=== PATIENT | male | born 1975 | race Caucasian/White ===

== ENCOUNTER 2017-04-14 10:00 | Day surgery (SDC) | payer MEDICAID ==
[2017-04-14] MEDS ORDERED: NORMAL SALINE 1,000 ML IV ONE ×2 (10:13→13:35)
[2017-04-14] MEDS ORDERED: KETOROLAC TROMETHAMINE 30 MG/ML VIAL IV ONE (10:13)
[2017-04-14] MEDS ORDERED: ONDANSETRON HCL/PF 2 MG/ML VIAL IV ONE (10:13)
[2017-04-14] MEDS ORDERED: ONDANSETRON HCL/PF 2 MG/ML VIAL ONE (10:18)
[2017-04-14] MEDS ORDERED: KETOROLAC TROMETHAMINE 30 MG/ML VIAL ONE (10:19)
--- NOTE | 2017-04-14 10:30 | ERNOTE ---
ER Male HPI Date of Service: 04/14/17 Stated Complaint: KIDNEY STONE ER Male: dysuria Time Seen by Provider: 04/14/17 10:11 Source: patient Exam Limitations: no limitations Immunizations: IMMUNIZATION HX Immunizations Up to Date No History of Influenza Vaccine No Hx Pneumococcal Vaccination No Allergies/Adverse Reactions: Allergies Penicillins Allergy (Severe, Verified 04/14/17 10:08) Other Home Medications: HOME MEDICATIONS Albuterol Sulfate [Proair Hfa] 1 - 2 puff IH Q6H PRN 04/14/17 [Last Taken Unknown] DULoxetine HCL [Cymbalta] 30 mg PO BID 04/14/17 [Last Taken Unknown] Loratadine [Allergy Relief] 10 mg PO DAILY 04/14/17 [Last Taken Unknown] Montelukast Sodium [Singulair] 10 mg PO DAILY 04/14/17 [Last Taken Unknown] Ranitidine HCl [Zantac] 150 mg PO DAILY 04/14/17 [Last Taken Unknown] Ranitidine HCl [Zantac] 300 mg PO HS 04/14/17 [Last Taken Unknown] Sildenafil Citrate [Revatio] 20 mg PO DAILY 04/14/17 [Last Taken Unknown] - History of Present Illness Narrative: Pt. comes in with c/o R flank pain and nausea and vomiting for four hours. Pt. denies any SOB, CP, diarrhea, fever, or prehospital treatment but states that he has a hx of kidney stones that passed on their own but states that this is the exact same symptoms as when he had the previous ones. Review of Systems - Review of Systems Constitutional: Present: diaphoresis. Absent: fever, chills, fatigue, malaise EYE: Present: no symptoms reported ENT: Present: no symptoms reported Respiratory: Present: no symptoms reported. Absent: shortness of breath, cough , wheezing Cardiology: Present: no symptoms reported. Absent: chest pain, palpitations, edema Gastrointestinal/Abdominal: Present: nausea, vomiting, abdominal pain - R suprapubic. Absent: diarrhea Genitourinary: Present: no symptoms reported Musculoskeletal: Present: back pain - R flank Skin: Present: no symptoms reported. Absent: rash, change in color Neurological: Present: no symptoms reported. Absent: headache, dizziness/light- headedness, weakness, numbness, tingling All Other Systems: All systems neg except as marked - Patient's Past Medical History Patient History - Medical: Other - ureteral stones - Social History Smoking Status: Never smoker Have you smoked in the past 12 months: No Do you dip or chew tobacco: No - Immunizations Immunizations Up to Date: No Hx Pneumococcal Vaccination: No History of Influenza Vaccine: No Physical Exam - Physical Exam General Appearance: Present: wd/wn, alert, moderate distress Head Exam: Present: normal inspection, no evidence of injury Eye Exam: Normal inspection: bilateral, PERRL: bilateral, EOMI: bilateral Ears, Nose, Throat: Present: normal ENT inspection, normal pharynx Neck: Present: normal inspection, nontender. Absent: lymphadenopathy (R), lymphadenopathy (L) Respiratory: Present: no respiratory distress, normal breath sounds, no accessory muscle use, chest nontender, lungs clear Cardiovascular/Chest: Present: regular rate, rhythm, no murmur, normal peripheral pulses Gastrointestinal/Abdominal: Present: normal bowel sounds, tenderness - R suprapubic and groin. Absent: McBurney sign, Obturator sign, Concepcion sign, Psoas sign, mass Back Exam: Present: normal inspection, normal range of motion, no vertebral tenderness, CVA tenderness (R) Extremity Exam: Present: normal inspection, non-tender, normal range of motion, no edema Neurological Exam: Present: alert, oriented, normal mood/affect, no motor/ sensory deficits Skin Exam: Present: diaphoresis, pallor ED Progress - Date and Time Seen: Date and Time: 04/14/17 13:[address] ludwig and he states that as pt. has bilat hydronephrosis that pt. needs this taken care of sooner than later and he will have Dr Hill come take a look at him 04/14/17 13:17 Dr Hill saw pt. and agrred to procedure. - Results and Orders Patient's Lab Results:: I have reviewed the patient's lab results. - Vital Signs Patient's Vital Signs:: I have reviewed the patient's vital signs. Vital Signs: Vital Signs 04/14/17 10:05 Temperature 36.0 C L Pulse Rate 73 Respiratory 20 Rate Blood Pressure 165/108 O2 Sat by Pulse 95 Oximetry - CT/Ultrasound CT/Ultrasound Narrative: CT with B distal ureter stones 5.8 mm and 5.6 mm with B hydronephrosis. - Progress/Reassessment Chief Complaint: Genitourinary Problem Progress:: Improved Progress Note-Subjective: 04/14/17 13:10 Pt. still appears ill and states tath he is nauseated and is still diaphoretic Departure Clinical Impression: Ureteral stone with hydronephrosis - Departure [facility] Condition: Fair Referrals: Jamison Alvarado DO [Primary Care Provider] -
[2017-04-14 10:32] LABS: Hematocrit 47.6 % (42.0-52.0); Hemoglobin 16.5 gm/dL (13.5-18.0); Mean Cell Volume 86.2 fl (78-100); Mean Corpuscular Hemoglobin 29.9 pg (27-31); Mean Corpuscular Hgb Conc 34.7 g/dl (32-36); Mean Platelet Volume 11.3 fl (6.0-9.5); Neutrophil # 5.1 K/mm3 (1.3-6.0); Neutrophil % 58.6 % (42-75.0); Platelet Count 306 K/mm3 (150-450); Red Blood Count 5.52 M/mm3 (4.7-6.0); Red Cell Distribution Width 13.4 % (11.5-14.0); White Blood Count 8.7 K/mm3 (4.0-10.5)
[2017-04-14 10:42] LABS: Albumin * 3.9 gm/dl (3.4-5.0); Anion Gap 16.1 mmol/L (6.8-13.8); BUN/Creatinine Ratio 13.1 (9.0-21.6); Bilirubin, Total 0.4 mg/dL (0.0-1.1); Ca. Corrected For Albumin 9.2 mg/dL (8.4-10.2); Calcium * 9.4 mg/dL (7.9-10.9); Carbon Dioxide 25.4 mmol/L (24-32.6); Potassium 4.5 mmol/L (3.4-4.6)
[2017-04-14 12:14] LABS: Urine Bilirubin Negative (NEGATIVE); Urine Blood 250 /ul (NEGATIVE); Urine Ketone Negative (NEGATIVE); Urine Nitrite Negative (NEGATIVE); Urine Protein 30 mg/dL (NEGATIVE); Urine Urobilinogen Normal (NORMAL)
[2017-04-14 12:15] LABS: Urine Appearance Cloudy; Urine Bacteria TRACE; Urine Color Dark Yellow; Urine RBC 25-50 /hpf (0-5)
--- NOTE | 2017-04-14 13:22 | CONS ---
HPI - General Narrative: Product Scientist: ER staff Reason for consultation: Recommendations/Management regarding bilateral obstructing ureteral calculi. 41-year-old male with severe bilateral flank pain couple days duration with some nausea. Has passed stones before. Seen in the emergency room with CT confirming bilateral obstructing ureteral calculi about detention to two thirds of [address] way down with significant bilateral hydroureteronephrosis. Location: Both kidneys Duration: Days Severity/Stage: Severe Associated Sx's: Nausea no fevers some hematuria Modifying factors: IV pain medicine helping but still symptomatic Quality: Colicky Past medical history: Includes nephrolithiasis Past surgical history: No prior stone surgery Social history: Nonsmoker, denies recreational or IV drug use Family history: Noncontributory Review of systems: General: No fevers, bilateral flank pain and nausea as above Lungs: No shortness of breath, has a history of asthma Heart: No chest pain GI: No diarrhea, no constipation Endocrine: Denies diabetes : Gross hematuria mild urgency and frequency 14 point review of systems otherwise negative, important positives noted - History of Present Illness Allergies/Adverse Reactions: Allergies Penicillins Allergy (Severe, Verified 04/14/17 10:08) Other Home Medications: Home Medications Medication Instructions Recorded Last Taken Albuterol Sulfate [Proair Hfa] 1 - 2 puff IH Q6H PRN 04/14/17 Unknown DULoxetine HCL [Cymbalta] 30 mg PO BID 04/14/17 Unknown Loratadine [Allergy Relief] 10 mg PO DAILY 04/14/17 Unknown Montelukast Sodium [Singulair] 10 mg PO DAILY 04/14/17 Unknown Ranitidine HCl [Zantac] 150 mg PO DAILY 04/14/17 Unknown Ranitidine HCl [Zantac] 300 mg PO HS 04/14/17 Unknown Sildenafil Citrate [Revatio] 20 mg PO DAILY 04/14/17 Unknown - Patient's Past Medical History Patient History - Medical: Other - ureteral stones Patient History - Cardiac/Respiratory: Asthma, Hypertension Patient History - Cancer: No Hx of Cancer Patient History - Other: None - Social History Living Situations: home Psych History: No pertinent hx Smoking Status: Never smoker Have you smoked in the past 12 months: No Do you dip or chew tobacco: No - Immunizations Immunizations Up to Date: No Hx Pneumococcal Vaccination: No History of Influenza Vaccine: No Procedures APPLICATION OF SPLINT (03/08/01) Physical Examination - Exam Narrative: General: Patient looks uncomfortable, nontoxic, he appears to be in renal colic Psych: Alert and oriented HEENT: EOM grossly intact Lungs: Respirations unlabored, clear Abdomen: Moderately obese otherwise benign Neuro: sensation intact Extremities: Moves all 4 without difficulty Heart: Tachycardic, pulse regular. Skin: No obvious rashes Back: No CVA tenderness Vital Signs: Vital Signs - Last Taken Temp 96.8 F L 04/14/17 10:05 Pulse 61 04/14/17 12:00 Resp 18 04/14/17 12:00 BP 146/84 04/14/17 12:00 Pulse Ox 99 04/14/17 12:00 O2 Oxygen Delivery Method Room Air - Results and Findings: Narrative: Bilateral obstructing ureteral calculi with hydroureteronephrosis: This represents a urgent/emergent situation as the possibility of bilateral ureteral obstruction exists. Patient also fairly symptomatic and stones are not small. Patient was interested in trying to pass which is an option but my concern would be bilateral obstruction which could lead to significant real impairment in a short period of time. I did not recommend he go down this path. My recommendation would be formal cystoscopy with bilateral retrogrades and attempted bilateral ureteroscopy with laser/basket versus simply stenting depending on intraoperative findings. I would try to leave him without stent if everything goes smooth but more than likely he will require at least one stent to prevent potential bilateral obstruction even after treatment. Understands I may simply stenting and come back another day if ureteral anatomy not conducive to ureteroscopy. Risks of procedure including bleeding/infection/injury to ureter including stricture/avulsion/perforation and typical stent symptoms discussed. Patient willing to proceed. Lab/Microbiology results last 24 hrs: Abnormal/Pending Laboratory Last 24 HRS 04/14/17 04/14/17 04/14/17 12:00 10:27 10:27 MPV 11.3 H Monocytes % 12.0 H Eosinophils % 6.5 H Anion Gap 16.1 H Random Glucose 111 H Urine Protein 30 H Urine Blood 250 H Ur Leukocyte Esterase 25 H Urine RBC 25-50 H Urine WBC 5-10 H
[2017-04-14] MEDS ORDERED: RINGER'S SOLUTION,LACTATED 1,000 ML IV ONE (14:25)
--- NOTE | 2017-04-14 14:31 | OR ---
Operative Report - Dictated Report Narrative: Location: Main OR Anesthesia: General Surgeon: Dr. Hill Preoperative diagnosis: Bilateral distal ureteral stone(s) Postoperative diagnosis: Same Procedure: #1 Cystoscopy with Bilateral retrograde pyelograms #2 bilateral flexible ureteroscopy with holmium laser lithotripsy Indications: 41-year-old recurrent stone former who has passed multiple stones. Was in the emergency room today with severe pain and nausea vomiting with CT demonstrating bilateral 6-7 mm mid to distal ureteral calculi with hydroureteronephrosis. Discussed options my concern being bilateral obstruction which could lead to complete obstruction patient agreed to proceed with above-mentioned procedure. Description: Consent obtained. Patient brought to the operating room where general endotracheal anesthesia was induced. Placed in the dorsal lithotomy position. Prepped and draped. Timeout taken. Rigid cystoscope introduced into the bladder with ease and quick cystoscopy revealed no tumors, stones or suspicious lesions . Bilateral retrogrades obtained and interpreted by Dr. Chadwick. Left ureter identified intubated with 5 [place] catheter and left retrograde obtained. Distal ureter normal caliber followed by a large shadowing filling defect just below the pelvic vessels consistent with known location of stone. Ureter on the backside was hydronephrotic. Right ureter identified intubated with 5 [place] catheter and right retrograde obtained. Distal ureter initially normal followed by a shadowing filling defect 5-6 cm from ureteric orifice this was lower than seen on CT scan indicating some progression, ureter on the backside hydronephrotic. I started with the right ureter and tried to advance a Bentson wire however it would not navigate past the stone. Caliber of ureter on the retrograde and ureteric orifice looked capacious enough to accommodate scope and so I elected to advance a flexible ureteroscope and proceed without a wire. I was able to get an easily on the right side advanced to the stone and using 200 fiber with an energy of 0.4 and a rate of 40 to break the stone into little pieces all of which evacuated into the bladder. I went over the left ureter and I was able to do the exact same thing without a wire and navigated to the stone and used the same laser to fragment the stone into small pieces all of which also evacuated the ureter. To confirm complete stone passage I reintroduced ureteroscope up both ureters inspected the ureter. There was minimal abrasion from the surgery, the distal ureters bilaterally just have a blanched appearance but no stricturing and both locations where the stones were stuck appear to bit edematous but widely patent without a lot of bleeding. Given how well the surgery went passage of all pieces and patient's prior history of doing well with larger stone fragments and passing larger stones I elected to try without a stent. Flexible scope removed. Rigid cystoscope reintroduced into the bladder and fragments were obtained. These were sent for analysis. I watched both ureters for several minutes with hydronephrotic flow and essentially no hematuria. This confirms no obstruction after treatment of stones and so I elected not to place a stent on either side. Specimen: Stone sent EBL: 1 ml Condition: tolerated procedure Important findings: Bilateral ureteral stones successfully treated with flexible ureteroscopy with passage of fragments on both sides and cystoscopically confirmed continuous-flow posttreatment. Follow-up: Patient has seen Dr. Kaur in the past. Stones will be sent for analysis. I will have him follow-up in 4 weeks with a KUB and UA prior to discussed dietary recommendations, stone composition results and consider possible 24 hour collection if felt necessary.
[2017-04-14 16:19] VITALS: BP 130/70
== END 2017-04-14 13:21 | disposition home or self-care (01) ==
LOC: ER 10:00 → AMB 13:20
PROVIDERS: ATTEND Urology
PROC: 0TC68ZZ Extirpation of Matter from Right Ureter, Via Natural or Artificial Opening Endoscopic (ICD-10-PCS; 2017-04-14)
PROC: 0TC78ZZ Extirpation of Matter from Left Ureter, Via Natural or Artificial Opening Endoscopic (ICD-10-PCS; principal; 2017-04-14 13:30)
DX: N13.2 Hydronephrosis with renal and ureteral calculous obstruction (principal); Z68.38 Body mass index [BMI] 38.0-38.9, adult
CPT/HCPCS: 36415; 52353; 74176; 74420; 76000; 80053; 81001; 82365; 85025; 87086; 96374; 96375; 99285; J2405